=== PATIENT | female | born 1990 | race Caucasian/White ===

== ENCOUNTER 2019-10-14 12:45 | Outpatient (CLI) | payer BC, SELFPAY ==
--- NOTE | ~2019-10-14 | CT_ITS ---
EXAMINATION: CTA chest PE protocol EXAM DATE: 10/14/2019 13:46 INDICATION: Shortness of breath. TECHNIQUE: Spiral CTA of the chest (pulmonary arteries) was performed with 100 cc Omnipaque 350 intr avenous contrast injection. Images were acquired during the pulmonary arterial phase. Coronal maxi mum intensity projection 3D-reconstructions were created by the technologist on dedicated workstation . Axial, coronal and sagittal reformatted images were reviewed. The dose-length product (DLP) for t his examination was 148.56 mGy-cm. The exposure was tailored according to patient size (auto mA exp osure control), and iterative reconstruction (ASIR) was used as additional dose reduction technique. There is no prior study for comparison. FINDINGS: Pulmonary arteries are well opacified and without intraluminal filling defects. No thora cic aortic dissection. The lungs are clear. There are no pleural or pericardial effusions. Trach eobronchial tree is patent. There is no mediastinal, hilar or axillary lymphadenopathy. There is no pneumothorax. Heart normal in size. No evidence of coronary arterial calcification. Upper abd omen is unremarkable. There is thoracic spondylosis without osteoblastic or osteolytic lesions iden tified. IMPRESSION: No pulmonary emboli or other acute findings. Reviewed, dictated and finalized at location A. ING MACHINE OPERATOR
[2019-10-14 14:15] LABS: Hematocrit 41.1 % (37.0-47.0); Hemoglobin 13.7 g/dL (12.0-15.0)
== END 2019-10-14 12:46 | disposition home or self-care (01) ==
PROVIDERS: PCP Family Medicine Adolescent Medicine; Visit Provider Physician Assistant
DX: R06.02 Shortness of breath (principal); R00.0 Tachycardia, unspecified
CPT/HCPCS: 36415; 71275; 85014; 85018; Q9967

== ENCOUNTER 2019-10-28 15:49 | Outpatient (CLI) | payer BC, SELFPAY ==
--- NOTE | 2019-10-30 20:17 | P.PCNHOL_ITS ---
Holter/Event Monitor Holter/Event Monitor Date of procedure: 10/30/19 Procedure Type: 24 hour Holter monitor Diagnosis: shortness of breath Indications: shortness of breath Image/Tracing Quality: good . Finding: The patient was monitored for 24 hours. The underlying rhythm was sinus with a minimum heart rate of 52 beats per minute, average heart rate of 84 beats per minute and maximum heart rate of 140 beats per minute. There were 154 PVCs and 3 APCs. There was no atrial fibrillation, heart block, pauses, SVT or VT. The patient had 1 symptom, that of being short of breath while walking from office to the elevator at 4:35 p.m.. He was in sinus tachycardia rate 109 beats per minute at that time. . Conclusion: . Fairly unremarkable Holter monitor. Rare PVCs Only symptom of shortness of breath correlated with walking and sinus tachy cardia
== END 2019-10-28 15:50 | disposition home or self-care (01) ==
LOC: ANHCARD 15:52
PROVIDERS: PCP Family Medicine Adolescent Medicine; Visit Provider Family Medicine Adolescent Medicine
DX: R06.02 Shortness of breath (principal)
CPT/HCPCS: 93225; 93226